=== PATIENT | female | born 1975 | race Caucasian/White ===

== ENCOUNTER 2018-09-29 12:05 | Emergency (ER) | payer MEDICAID ==
[~2018-09-29] VITALS: Ht 160 cm; Wt 50.0 kg
[~2018-09-29 12:05] MED LIST: ALPR-624 PO; ZOLP10TA5 PO
[2018-09-29 12:18] VITALS: BP 121/74
[2018-09-29] MEDS ORDERED: TRIA15CR62 TP (13:36)
== END 2018-09-29 13:47 | disposition home or self-care (01) ==
LOC: ER 12:06
DX: R59.0 Localized enlarged lymph nodes (principal); L25.9 Unspecified contact dermatitis, unspecified cause; F17.200 Nicotine dependence, unspecified, uncomplicated; Z88.2 Allergy status to sulfonamides; Z79.899 Other long term (current) drug therapy
CPT/HCPCS: 99283